=== PATIENT | female | born 1975 | race Caucasian/White ===

== ENCOUNTER 2020-10-27 12:39 | Observation (INO) ==
[2020-10-27] MEDS ORDERED: PROPARACAINE 0.5% 225 DROPS/15 ML BTL OP STA (13:49)
[2020-10-27] MEDS ORDERED: DIPHTHERIA/TETANUS/PERTUSSIS 0.5 ML SYR/VIAL IM ONE (13:49)
[2020-10-27] MEDS ORDERED: AMPICILLIN/SULBACTAM SOD 3,000 MG in 0.9 % SODIUM CHLORIDE 100 ML IV STA (14:21)
[2020-10-27] MEDS ORDERED: SODIUM CHLORIDE 0.9% 1000ML 1,000 ML IV ONE (14:21)
--- NOTE | 2020-10-27 14:30 | Emergency Department Note ---
History of Present Illness General Chief complaint: Eye Pain Stated complaint: DOG SCRATCHED L EYE SUNDAY, NOW SWOLLEN Time Seen by Provider: 10/27/20 13:49 History of Present Illness 45-year-old female who presents to the emergency department with complaint of left facial swelling and redness that has progressively worsened since sustaining a dog scratch to the left upper eyelid on Sunday. The patient report s aggressively worsening swelling and redness. She denies any significant pain. She has had some drainage from the wound. The patient was seen by her PCP yesterday, and provided a prescription for Augmentin antibiotics. The patient has now taken 3 doses of the Augmentin with progressively worsening symptoms. She denies any fever, blurred vision or headaches. She was seen today at the [facility] with a normal eye exam, showing no evidence for corneal abrasion. They recommended that she come to the emergency department for IV antibiotics. Tetanus immunization is not up-to-date. The patient denies any pain with movement of the eye. Home Medications Medication Instructions Recorded Confirmed Type amoxicillin 875 mg-potassium 1 tab PO BID 7 Days #14 tab 10/26/20 10/27/20 Rx clavulanate 125 mg tablet (Augmentin) calcipotriene 0.005 % topical cream 1 applic TOPICAL UD 10/27/20 10/27/20 History clobetasol 0.05 % shampoo 1 applic TOPICAL CQWK 10/27/20 10/27/20 History triamcinolone acetonide 0.1 % 1 applic TOPICAL UD 10/27/20 10/27/20 History topical cream Allergies Allergy/AdvReac Type Severity Reaction Status Date / Time fluconazole [From Diflucan] Allergy Intermediate hives, Verified 10/27/20 16:04 swelling aspirin Allergy Unknown hives Verified 10/27/20 16:04 ibuprofen Allergy Unknown hives Verified 10/27/20 16:04 NSAIDS (Non-Steroidal Allergy Unknown hives Verified 10/27/20 16:04 Anti-Inflamma Past Med/Surg History Medical History Ectopic Surgical History H/O laparoscopy excision of ectopic S/P tonsillectomy Family History Father Multiple myeloma Mother Ovarian cancer Denies family history of Prostate cancer Myocardial infarction Breast cancer Colorectal cancer Social History Smoking Status: Never smoker Second Hand Exposure: No; Hx Alcohol Use: Yes Hx Substance Use: No Preferred Language: Frisian Communication Ability: Effective Visual Impairment: No Limitations Hearing Ability: Normal Invasive Cardiovascular Technologist Required: No Beliefs That Will Affect Care: None marital status: Current Living Situation: Spouse Current Living Situation Comment: home with husb current occupational status: employed current occupation: [employer] Feels Safe at Home: Yes Safety Concerns: Feels Safe At This Time Childhood Exposure to Second-Hand Smoke: No caffeine: Yes during the past year weight has: remained stable Dental Care, Regularly: Yes Physical Activity Frequency: Does not Exercise Seatbelt Use: always Sunscreen Use: No Review of Systems 10 system review was performed and was negative except for pertinent positives and negatives as indicated in history of present illness Physical Exam Vital Signs Vital Signs - 24 hr 10/27/20 12:52 10/27/20 14:41 Temperature 36.2 C L Temperature Source Temporal Artery Scan Pulse Rate 88 Pulse Rate [Apical] 78 Respiratory Rate 18 18 Blood Pressure 155/97 H Blood Pressure [Left Arm] 162/97 H Blood Pressure Mean 116 Blood Pressure Mean [Left Arm] 118 Pulse Oximetry 97 97 Oxygen Delivery Method Room Air Room Air Sepsis Recent Fever Within 48 Hours No Sepsis New/Unexplained Change in Mental Status N/A Sepsis Action Taken by Nursing No Action Required CONSTITUTIONAL: Healthy and well nourished. Alert and oriented X 3. Patient does not appear in any acute distress. HEENT: Examination shows notable left periorbital edema and erythema with eye swollen shut. I am able to open the eye to show no evidence for conjunctival injection. Pupils equal, round and reactive. EOMs intact without discomfort. Patient has mild serous drainage from the upper eyelid with notable edema. There is minimal tenderness to palpation. NECK: Full active range of motion without discomfort. LYMPHATICS: No cervical chain adenopathy. RESPIRATORY: Clear to auscultation bilaterally with no wheezing, crackles, rhonchi or stridor. CARDIOVASCULAR: Regular rate and rhythm with no murmurs, rubs or gallops. INTEGUMENTARY: No rash or other significant dermatologic conditions noted. HEMATOLOGIC: No ecchymosis or petechiae. PSYCHIATRIC: Positive affect. NEUROLOGIC: Cranial nerves II-XII grossly intact. No focal neurologic deficits noted. Facial sensations are intact. Course Course Patient history and physical exam were performed. Nurses notes were reviewed. Vital signs were reviewed, showing an elevated blood pressure of 155/97. The patient is afebrile. Examination is concerning for progressively worsening preseptal cellulitis, noting no pain with extraocular movements. The patient also had an examination performed by ophthalmology who indicates no involvement of the cornea. Because of the continued evolution of this infection, I did recommend hospitalization for IV antibiotics; the patient was in agreement. IV access was established, and labs were drawn. The patient was hydrated with a liter of normal saline. The patient was administered IV Unasyn 3 g. Review of labs does not show any significant abnormalities. The patient has no leukocytosis. CT with IV contrast of the facial bones shows evidence for cellulitis, and no obvious drainable fluid. No periorbital involvement appreciated. The case was discussed with Dr. Akhtar, ED attending physician, who agrees with admission for this infection. The case was also discussed with Dr. Chaparro, [facility] hospitalist, who came to the emergency department and agrees with admission. Please see his dictation for further treatment and final disposition. Administered Medications Ceftriaxone Sodium 1,000 mg/ (Dextrose) 50 mls @ 100 mls/hr IV Q24H [facility]; Protocol Stop: 11/03/20 20:59 Last Admin: 10/27/20 21:22 Dose: 100 mls/hr Documented by: [id number] Discontinued Medications Diphtheria/Pertussis/Tetanus Vacc (Diphtheria/Tetanus/Pertussis 0.5 Ml Syr/Vial) 0.5 ml IM .ONCE ONE Stop: 10/27/20 13:50 Last Admin: 10/27/20 15:19 Dose: 0.5 ml Documented by: [id number] Ampicillin Sodium/Sulbactam Sodium 3,000 mg/ Sodium Chloride 108 mls @ 200 mls/hr IV NOW STA; Protocol Stop: 10/27/20 14:53 Last Infusion: 10/27/20 15:45 Dose: 0 mls/hr Documented by: [id number] Admin: 10/27/20 15:11 Dose: 200 mls/hr Documented by: [id number] Sodium Chloride (Nss 1000ml) 1,000 mls @ 999 mls/hr IV .Q1H1M ONE Stop: 10/27/20 15:21 Last Infusion: 10/27/20 16:16 Dose: 0 mls/hr Documented by: [id number] Admin: 10/27/20 15:11 Dose: 999 mls/hr Documented by: [id number] Ioversol (Optiray 320 100ml) 92 ml IV ONCE ONE Stop: 10/27/20 15:40 Last Admin: 10/27/20 15:40 Dose: 92 ml Documented by: [id number] Proparacaine HCl (Proparacaine 0.5% 225 Drops/15 Ml Btl) 2 drops OP NOW STA Stop: 10/27/20 13:50 Last Admin: 10/27/20 17:33 Dose: Not Given Documented by: [id number] Medical Decision Making Medical Records Medications were reviewed Home Medications Additional Comments: Medications were reviewed Laboratory Data Laboratory studies were reviewed Result diagrams: 10/27/20 14:45 10/27/20 14:45 Lab Results 10/27/20 10/27/20 10/27/20 Range/Units 14:45 14:45 14:45 WBC 9.24 (4.8-10.8) K/uL RBC 4.53 (4.2-5.4) M/uL Hgb 14.3 (12.0-16.0) g/dL Hct 42.0 (37-47) % MCV 92.7 (80-100) fL MCH 31.6 (25-34) pg MCHC 34.0 (32-36) g/dL RDW Std Deviation 43.6 (36.4-46.3) fL RDW Coeff of Britton 12.8 (11.5-14.5) % Plt Count 320 (130-400) K/uL MPV 10.4 (7.4-10.4) fL Immature Gran % (Auto) 0.2 % Neut % (Auto) 69.9 % Lymph % (Auto) 22.4 % Jay % (Auto) 6.2 % Eos % (Auto) 1.1 % Baso % (Auto) 0.2 % Neut # (Auto) 6.46 (1.4-6.5) K/uL Lymph # (Auto) 2.07 (1.2-3.4) K/uL Jay # (Auto) 0.57 (0.11-0.59) K/uL Eos # (Auto) 0.10 (0-0.5) K/uL Baso # (Auto) 0.02 (0-0.2) K/uL Immature Gran # (Auto) 0.02 (0.00-0.02) K/uL Sodium 137 (136-145) mmol/L Potassium 3.9 (3.5-5.1) mmol/L Chloride 107 (98-107) mmol/L Carbon Dioxide 27 (21-32) mmol/L Anion Gap 3.0 (3-11) BUN 13 (7-18) mg/dl Creatinine 0.65 (0.6-1.2) mg/dl Est Cr Clr Drug Dosing 100.8 ml/min Est GFR ( Amer) 122.5 ml/min Est GFR (Non-Af Amer) 105.7 ml/min BUN/Creatinine Ratio 19.4 (10-20) Glucose 84 (70-99) mg/dl Calcium 9.2 (8.5-10.1) mg/dl Total Bilirubin 0.5 (0.2-1) mg/dl AST 16 (15-37) U/L ALT 25 (12-78) U/L Alkaline Phosphatase 101 (45-117) U/L Total Protein 8.1 (6.4-8.2) gm/dl Albumin 4.0 (3.4-5.0) gm/dl Globulin 4.1 H (2.5-4.0) gm/dl Albumin/Globulin Ratio 1.0 (0.9-2) COVID-19 Eval Order Covid19 at [facility] SARS-CoV-2 (PCR) (Negative) 10/27/20 Range/Units 14:45 WBC (4.8-10.8) K/uL RBC (4.2-5.4) M/uL Hgb (12.0-16.0) g/dL Hct (37-47) % MCV (80-100) fL MCH (25-34) pg MCHC (32-36) g/dL RDW Std Deviation (36.4-46.3) fL RDW Coeff of Britton (11.5-14.5) % Plt Count (130-400) K/uL MPV (7.4-10.4) fL Immature Gran % (Auto) % Neut % (Auto) % Lymph % (Auto) % Jay % (Auto) % Eos % (Auto) % Baso % (Auto) % Neut # (Auto) (1.4-6.5) K/uL Lymph # (Auto) (1.2-3.4) K/uL Jay # (Auto) (0.11-0.59) K/uL Eos # (Auto) (0-0.5) K/uL Baso # (Auto) (0-0.2) K/uL Immature Gran # (Auto) (0.00-0.02) K/uL Sodium (136-145) mmol/L Potassium (3.5-5.1) mmol/L Chloride (98-107) mmol/L Carbon Dioxide (21-32) mmol/L Anion Gap (3-11) BUN (7-18) mg/dl Creatinine (0.6-1.2) mg/dl Est Cr Clr Drug Dosing ml/min Est GFR ( Amer) ml/min Est GFR (Non-Af Amer) ml/min BUN/Creatinine Ratio (10-20) Glucose (70-99) mg/dl Calcium (8.5-10.1) mg/dl Total Bilirubin (0.2-1) mg/dl AST (15-37) U/L ALT (12-78) U/L Alkaline Phosphatase (45-117) U/L Total Protein (6.4-8.2) gm/dl Albumin (3.4-5.0) gm/dl Globulin (2.5-4.0) gm/dl Albumin/Globulin Ratio (0.9-2) COVID-19 Eval Order SARS-CoV-2 (PCR) NEGATIVE (Negative) Imaging Data My Impression: My interpretation of a CT with IV contrast of the facial bones does not show any collections of fluid or periorbital involvement. Radiologist report was also reviewed. Radiologist's Impression: Face CT 10/27/20 14:21 CT facial bones w con HISTORY: 45 years-old Female L preseptal cellulitis acute soft tissue swelling of the left periorbital tissues COMPARISON: CT soft tissue neck 08/30/2012 TECHNIQUE: Multiple axial CT images of the maxillofacial bones were obtained following the intravenous ministration of 92 mL Optiray 320. A dose lowering technique was used consistent with the principals of KRISHAN. FINDINGS: Mild to moderate subcutaneous edema of the left preseptal periorbital tissues extending to the left cheek. No drainable fluid collection or discrete soft tissue mass. The globes and orbits are otherwise unremarkable. No post septal inflammation. Streak artifact from dental amalgam hardware. The parotid and submandibular glands are unremarkable. Mildly prominent bilateral submandibular and cervical chain lymph nodes are likely reactive measuring up to 7 mm. Unremarkable carotid arteries. The imaged intracranial structures are unremarkable. Mastoid air cells and middle ear cavities are clear. Mild mucoperiosteal thickening of the paranasal sinuses. No acute calvarial fracture. Degenerative changes of the cervical spine. IMPRESSION: 1. Mild to moderate preseptal left periorbital subcutaneous edema compatible with the patient's reported clinical history of cellulitis. No drainable fluid collection or post septal inflammation. 2. Mildly prominent cervical chain lymph nodes are likely reactive. 3. Mild paranasal sinus disease. ACT 112: Negative or not required by law. The above report was generated using voice recognition software. It may contain grammatical, syntax or spelling errors. Electronically signed by: Lan Vann M.D. 10/27/2020 3:55 PM Blood Pressure Blood Pressure Findings: Elevated blood pressure MDM Narrative Patient presents to the emergency department with history and clinical exam concerning for progressively worsening preseptal cellulitis after sustaining a dog bite to the left upper eyelid 4 days ago. The patient has had 3 doses of Augmentin with progressively worsening infection. The patient has already seen her stock counter who did an examination showing no evidence for globe injury or corneal abrasion. CT imaging today does not show evidence for periorbital cellulitis. Patient is in agreement to undergo admission for IV antibiotics. I do not suspect sepsis. Impression & Plan Preseptal cellulitis of left eye, Dog scratch, Superficial injury of eyelid with infection Discharge Plan Visit Data Chief Complaint: Eye Pain Stated Complaint: DOG SCRATCHED L EYE SUNDAY, NOW SWOLLEN ED Provider: Tremaine Akhtra ED Midlevel Provider: Jerad Tay Discharge Problem: Preseptal cellulitis of left eye, Dog scratch, Superficial injury of eyelid with infection Patient Disposition: Admitted As Inpatient Discharge Instructions Interventions: ED Discharge Assessment Last Done: 10/27/20 18:19 Discharge Problem: Superficial injury of eyelid with infection Qualifiers: Encounter type: initial encounter Laterality: left Qualified Code(s): S00.202A - Unspecified superficial injury of left eyelid and periocular area, initial encounter
[2020-10-27 14:57] LABS: Basophils # (auto) 0.02 K/uL (0-0.2); Basophils % (auto) 0.2 %; Eosinophils % (auto) 1.1 %; Hemoglobin 14.3 g/dL (12.0-16.0); Immature Granulocytes # (auto) 0.02 K/uL (0.00-0.02); Immature Granulocytes % (auto) 0.2 %; Lymphocytes # (auto) 2.07 K/uL (1.2-3.4); Lymphocytes % (auto) 22.4 %; Mean Corpuscular Hemoglobin 31.6 pg (25-34); Mean Corpuscular Volume 92.7 fL (80-100); Mean Platelet Volume 10.4 fL (7.4-10.4); Monocytes # (auto) 0.57 K/uL (0.11-0.59); Monocytes % (auto) 6.2 %; Neutrophils # (auto) 6.46 K/uL (1.4-6.5); Neutrophils % (auto) 69.9 %; Platelet Count 320 K/uL (130-400); RDW Coefficient of Variation 12.8 % (11.5-14.5); RDW Standard Deviation 43.6 fL (36.4-46.3); Red Blood Count 4.53 M/uL (4.2-5.4); White Blood Count 9.24 K/uL (4.8-10.8)
--- NOTE | 2020-10-27 15:11 | History & Physical Report ---
Date of Service October 27, 2020 Assessment & Plan (1) Erysipelas: Plan: Patient has erysipela from the dog scratch. Patient will benefit from IV antibiotics given no response to aurgmentin. Will switch unasyn to ceftriaxone. will monitor response. Anticipate short hospital course, patient will likely be discharged tomorrow if she improves. Due to short hospital stay, will hold DVT prophylaxis. recommend that she ambulates. (2) Dog scratch: Plan: as noted above. (3) Superficial injury of eyelid with infection: Plan: as noted above. Small laceration, no indication for suturing at this time History of Present Illness Chief Complaint: Dog scratch in eyelid Primary Care Provider: Geneva Rodriguez, DO 45 yo female with no significant past medical history comes to the ER after suf fering from a dog scratch. Her 100 pound dog jumped up and scratched her left upper eyelid with its front paw. Thankfully, it missed the eye. Initially there was a small cut in the eyelid. Over the weekend, the upper eyelid became more red. She went to see her PCP, and was prescribed augmentin. Patient reports no improvement after 3 doses, her left eye is now shut due to more swelling, which prompted her to go to the ER. Allergies Allergy/AdvReac Type Severity Reaction Status Date / Time fluconazole [From Diflucan] Allergy Intermediate hives, Verified 10/27/20 16:04 swelling aspirin Allergy Unknown hives Verified 10/27/20 16:04 ibuprofen Allergy Unknown hives Verified 10/27/20 16:04 NSAIDS (Non-Steroidal Allergy Unknown hives Verified 10/27/20 16:04 Anti-Inflamma Home Medications Medication Instructions Recorded Confirmed Type amoxicillin 875 mg-potassium 1 tab PO BID 7 Days #14 tab 10/26/20 10/27/20 Rx clavulanate 125 mg tablet (Augmentin) calcipotriene 0.005 % topical cream 1 applic TOPICAL UD 10/27/20 10/27/20 Histo ry clobetasol 0.05 % shampoo 1 applic TOPICAL CQWK 10/27/20 10/27/20 History triamcinolone acetonide 0.1 % 1 applic TOPICAL UD 10/27/20 10/27/20 History topical cream Past Med/Surg History Medical History Ectopic Surgical History H/O laparoscopy excision of ectopic S/P tonsillectomy Family History Father Multiple myeloma Mother Ovarian cancer Denies family history of Prostate cancer Myocardial infarction Breast cancer Colorectal cancer Social History Smoking Status: Never smoker Second Hand Exposure: No; Hx Alcohol Use: Yes Hx Substance Use: No Preferred Language: Macanese Communication Ability: Effective Visual Impairment: No Limitations Hearing Ability: Normal Endless Belt Finisher Required: No Beliefs That Will Affect Care: None marital status: Current Living Situation: Spouse Current Living Situation Comment: home with husb current occupational status: employed current occupation: [employer] Feels Safe at Home: Yes Safety Concerns: Feels Safe At This Time Childhood Exposure to Second-Hand Smoke: No caffeine: Yes during the past year weight has: remained stable Dental Care, Regularly: Yes Physical Activity Frequency: Does not Exercise Seatbelt Use: always Sunscreen Use: No Review of Systems Constitutional: no fever, no sweats and no body aches Eyes: + discharge (clear nonpurulent discharge from lesion, ); no blind spots and no diplopia Ear, Nose, Mouth, Throat: no ear pain and no ear trauma Respiratory: no cough and no change in sputum Cardiovascular: no chest pain and no chest pain with activity Gastrointestinal: no abdominal pain and no bloating Genitourinary: no dysuria and no urinary frequency Musculoskeletal: no back pain and no radicular pain Integumentary: + rash Neurologic: no gait abnormality and no falls Psychiatric: no behavioral changes and no hopelessness Endocrine: no fatigue and no polydipsia Hematologic / Lymphatic: no easy bleeding and no coagulopathy Allergy / Immunological: no GI upset with certain foods and no lip swelling Physical Exam Constitutional: WD/WN, vitals as above Eyes: PERRL, conjunctivae normal, anicteric sclerae (Significant circunferen swelling and redness on soft tissue around left eye) Due to swelling, her left eye lids are shut, she is able to open them if asked, no pain with movement ENMT: external ear and nose normal, oropharynx normal Neck: trachea midline, no thyromegaly Respiratory: normal respiratory effort, lungs clear to auscultation Cardiovascular: RRR, no murmur, no edema Gastrointestinal (Abdomen): normal bowel sounds, soft, nontender, no hepatosplenomegaly Musculoskeletal: no cyanosis or clubbing, extremities motor strength 5/5 Skin: no rashes, warm and dry (except for facial lesion) Neurologic: PERRL, EOMI, accommodation nl, no face palsy, no dysarthria Psychiatric: A+Ox3, euthymic affect Lymphatic: no cervical or axillary lymphadenopathy Results & Data Results & Data ([facility]) Vital Signs (Past 12 Hours) Vital Signs Temp Pulse Resp BP Pulse Ox 10/27/20 12:52 36.2 C L 88 18 155/97 H 97 PG Care Time/CCT Total # of Minutes Spent Total Time Spent with Patient: Total time spent is greater than 50% in coordination of care (as documented) at patient's floor/unit and/or counseling patient: Coding Level of Care Code 19712 Initial Inpt Care Lvl 3 Diagnoses Erysipelas A46 Dog scratch W54.8XXA Superficial injury of eyelid with infection S00.202A; H01.9 Encounter type: initial encounter Laterality: left (1) Superficial injury of eyelid with infection Encounter type: initial encounter Laterality: left Qualified Code(s): S00.202A - Unspecified superficial injury of left eyelid and periocular area, initial encounter; H01.9 - Unspecified inflammation of eyelid
[2020-10-27 15:18] LABS: BUN Creatinine Ratio 19.4 (10-20); Calcium 9.2 mg/dl (8.5-10.1); Creatinine Clr Calc Pharmacy 100.8 ml/min; Est GFR (African American) 122.5 ml/min; Est GFR (Non-African American) 105.7 ml/min; Potassium 3.9 mmol/L (3.5-5.1)
[2020-10-27 15:21] LABS: Bilirubin,Total 0.5 mg/dl (0.2-1); Globulin 4.1 gm/dl (2.5-4.0); Total Protein 8.1 gm/dl (6.4-8.2)
[2020-10-27] MEDS ORDERED: OPTIRAY 320 100ml IV ONE (15:39)
--- NOTE | 2020-10-27 15:56 | CT Scan Report ---
CT facial bones w con HISTORY: 45 years-old Female L preseptal cellulitis acute soft tissue swelling of the left periorbit al tissues COMPARISON: CT soft tissue neck 08/30/2012 TECHNIQUE: Multiple axial CT images of the maxillofacial bones were obtained following the intravenou s ministration of 92 mL Optiray 320. A dose lowering technique was used consistent with the principal s of KRISHAN. FINDINGS: Mild to moderate subcutaneous edema of the left preseptal periorbital tissues extending to the left c heek. No drainable fluid collection or discrete soft tissue mass. The globes and orbits are otherwise unremarkable. No post septal inflammation. Streak artifact from dental amalgam hardware. The parotid and submandibular glands are unremarkable. Mildly prominent bilateral submandibular and cervical krystyna in lymph nodes are likely reactive measuring up to 7 mm. Unremarkable carotid arteries. The imaged in tracranial structures are unremarkable. Mastoid air cells and middle ear cavities are clear. Mild mucoperiosteal thickening of the paranasal sinuses. No acute calvarial fracture. Degenerative changes of the cervical spine. IMPRESSION: 1. Mild to moderate preseptal left periorbital subcutaneous edema compatible with the patient's repor darshana clinical history of cellulitis. No drainable fluid collection or post septal inflammation. 2. Mildly prominent cervical chain lymph nodes are likely reactive. 3. Mild paranasal sinus disease. ACT 112: Negative or not required by law. The above report was generated using voice recognition software. It may contain grammatical, syntax o r spelling errors. Electronically signed by: Lan Vann M.D. 10/27/2020 3:55 PM
[2020-10-27] MEDS: cefTRIAXone SODIUM 1,000 MG in DEXTROSE 5% 50 ML IV SCH (21:22)
[2020-10-28] MEDS: cefTRIAXone SODIUM 1,000 MG in DEXTROSE 5% 50 ML IV SCH (19:01)
--- NOTE | 2020-10-29 07:56 | Discharge Summary ---
Date of Service October 28, 2020 Admission HPI Per Admitting Provider 45 yo female with no significant past medical history comes to the ER after suffering from a dog scratch. Her 100 pound dog jumped up and scratched her left upper eyelid with its front paw. Thankfully, it missed the eye. Initially there was a small cut in the eyelid. Over the weekend, the upper eyelid became more red. She went to see her PCP, and was prescribed augmentin. Patient reports no improvement after 3 doses, her left eye is now shut due to more swelling, which prompted her to go to the ER. Principal Diagnosis erysipela around left eye Discharge Exam Constitutional WD/WN, vitals as above Eyes PERRL, conjunctivae normal, anicteric sclerae (Decreased swelling around left eye, now open left eyelid) ENMT external ear and nose normal, oropharynx normal Neck trachea midline, no thyromegaly Respiratory normal respiratory effort, lungs clear to auscultation Cardiovascular RRR, no murmur, no edema Gastrointestinal (Abdomen) normal bowel sounds, soft, nontender, no hepatosplenomegaly Musculoskeletal no cyanosis or clubbing, extremities motor strength 5/5 Skin no rashes, warm and dry (except for facial lesion) Neurologic PERRL, EOMI, accommodation nl, no face palsy, no dysarthria Psychiatric A+Ox3, euthymic affect Lymphatic no cervical or axillary lymphadenopathy Discharge Data Allergies Allergy/AdvReac Type Severity Reaction Status Date / Time fluconazole [From Diflucan] Allergy Intermediate hives, Verified 10/27/20 16:04 swelling aspirin Allergy Unknown hives Verified 10/27/20 16:04 ibuprofen Allergy Unknown hives Verified 10/27/20 16:04 NSAIDS (Non-Steroidal Allergy Unknown hives Verified 10/27/20 16:04 Anti-Inflamma Consultations 10/27/20 14:21 ED Decision to Admit Stat Ordered Studies 10/27/20 14:21 CT facial bones w con Stat Hospital Course (1) Erysipelas: Patient has erysipela from the dog scratch. Patient will benefited from IV antibiotics given no response to aurgmentin. Patient appears to be responding to ceftriaxone, swelling has gone done significantly. Will transition back to augmentin now that erysipela is better controlled. Will recommend followup with PCP on Sunday. Patient will received second dose of ceftriaxone prior to discharge. At this point, her lesion will need to be closed by secondary closure. Due to short hospital stay, held DVT prophylaxis. recommend that she ambulates. (2) Dog scratch: Plan: as noted above. (3) Superficial injury of eyelid with infection: Plan: as noted above. Small laceration, no indication for suturing at this time (2) Dog scratch: (3) Superficial injury of eyelid with infection: Total Time Total Time Spent Total Time Spent (In Minutes): 32 Discharge Plan Discharge Items Patient Disposition: Home - Self-Care Reason For Visit: FACIAL SWELLING/ERYSIPELA Discharge Diagnosis: erysipela Activity: Resume your previous activity Non-emergency contact: Primary Care Provider Call non-emergency contact if: you have any medication questions Follow-up/Referrals: Geneva Rodriguez, [Primary Care Provider] - 11/02/20 10:15 am (With Eugenia Gray) Diet: Regular Addtl Attending Provider Instructions: You have been hospitalized for an acute medical problem. During your stay at [facility], we have made an effort to correct the problem that brought you to the hospital while keeping you as comfortable as possible. Medications were used to bring your condition under control and your discharge instructions will include directions for any medications you should take after leaving the hospital. Please make sure you see your Primary Care Provider as part of your follow up plan. FOLLOWUP WITH YOUR PROVIDER ON SUNDAY. TAKE PICTURES DAILY to have records of progress Pending Studies at Discharge: No Stand-Alone Forms: My [facility], Smoking Cessation Medications and DC Order Prescriptions: Continued amoxicillin-pot clavulanate [Augmentin] 875-125 mg tablet 1 tab PO BID 7 Days Qty: 14 RF: 0 triamcinolone acetonide 0.1 % cream 1 applic TOPICAL UD RF: 0 calcipotriene 0.005 % cream 1 applic TOPICAL UD RF: 0 clobetasol 0.05 % shampoo 1 applic TOPICAL CQWK RF: 0 Discharge Orders: Discharge Order (Routine); Ordered 10/28/20 Ordered By: Jonnie Chaparro Admission Data Admit Date/Time: 10/27/20 15:27 Attending Provider: Jonnie Chaparro Admit Provider: Jonnie Chaparro Primary Care Provider: Geneva Rodriguez Other Providers: Jonnie Chaparro Other Interventions: Discharge Summary Assessment (RN) Last Done: 10/28/20 19:03 Coding Level of Care Code 97682 OBS Care - Discharge Diagnoses Erysipelas A46 Dog scratch W54.8XXA Superficial injury of eyelid with infection S00.202A; H01.9 Encounter type: initial encounter Laterality: left Time Spent (min) 32
== END 2020-10-28 19:38 | disposition home or self-care (01) ==
LOC: ED 12:39 → EDINP 12:39 → 2W 19:08